=== PATIENT | male | born 1980 | race Caucasian/White ===

== ENCOUNTER 2019-05-16 00:21 | Emergency (ER) | payer OTHER ==
[~2019-05-16] VITALS: Ht 182.9 cm; Wt 147.4 kg
[~2019-05-16 00:21] MED LIST: FLUOXETINE HCL20 MG PO; ISENTRESS400 MG PO; TRUVADA 200 MG1 EACH PO; XANAX0.25 MG PO
--- OUTSIDE RECORDS SUMMARY | 2019-05-16 00:24 | XMS ---
PreManage Notification: FARHAN LONGO Security Plugger Events No recent Security Events currently on file [facility] There are no care providers on record at this time. Aicha has no Care Guidelines for this patient. Kailee VISIT COUNT (12 MO.) 1 ANUJ Diaz TOTAL 1 NOTE: Visits indicate total known visits. ED/UCC VISIT TRACKING (12 MO.) 05/16/2019 00:23 ANUJ Chowdary [place] TYPE: Emergency COMPLAINT: - RT THUMB PAIN INPATIENT VISIT TRACKING (12 MO.) No inpatient visits to display in this time frame [id number]
[2019-05-16] MEDS ORDERED: BACTRIM DS TAB1 EACH PO (00:56)
== END 2019-05-16 01:05 | disposition home or self-care (01) ==
LOC: ED 00:21
DX: L03.011 Cellulitis of right finger (principal); L98.9 Disorder of the skin and subcutaneous tissue, unspecified; I10 Essential (primary) hypertension; F41.9 Anxiety disorder, unspecified; F17.200 Nicotine dependence, unspecified, uncomplicated; Z79.899 Other long term (current) drug therapy
CPT/HCPCS: 99283

== ENCOUNTER 2019-08-01 13:38 | Emergency (ER) | payer OTHER ==
[~2019-08-01] VITALS: Ht 182.9 cm; Wt 147.4 kg
[~2019-08-01 13:38] MED LIST changes: +BACTRIM DS TAB1 EACH PO
--- OUTSIDE RECORDS SUMMARY | 2019-08-01 13:42 | XMS ---
PreManage Notification: FARHAN LONGO Security Personal Care Assistant Events No recent Security Events currently on file CRITERIA MET - [employer] CARE PROVIDERS [facility] 05/16/2019-Current PHONE: [phone] Aicha has no Care Guidelines for this patient. EMike VISIT COUNT (12 MO.) 2 ANUJ Diaz TOTAL 2 NOTE: Visits indicate total known visits. ED/UCC VISIT TRACKING (12 MO.) 08/01/2019 13:39 ANUJ Chowdary [place] TYPE: Emergency COMPLAINT: - SKIN PROBLEM 05/16/2019 00:23 ANUJ Chowdary [place] TYPE: Emergency COMPLAINT: - RT THUMB PAIN DIAGNOSES: - Disorder of the skin and subcutaneous tissue, unspecified - Cellulitis of right finger - Pain in right finger(s) - Other fdc (current) drug therapy - Anxiety disorder, unspecified - Essential (primary) hypertension - Nicotine dependence, unspecified, uncomplicated INPATIENT VISIT TRACKING (12 MO.) No inpatient visits to display in this time frame [id number]
== END 2019-08-01 14:05 | disposition home or self-care (01) ==
LOC: ED 13:38
DX: L08.9 Local infection of the skin and subcutaneous tissue, unspecified (principal)

== ENCOUNTER 2020-03-11 01:09 | Emergency (ER) | payer OTHER ==
[~2020-03-11] VITALS: Ht 182.9 cm; Wt 158.8 kg
[2020-03-11] MEDS ORDERED: DOXYCYCLINE HY100 MG PO (02:26)
[2020-03-11] MEDS ORDERED: NORCO 5-325 TA1 EACH PO (02:26)
--- OUTSIDE RECORDS SUMMARY | 2020-03-11 03:02 | XMS ---
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 If Mental Health services are needed please contact: Harris [phone] Safia/ Bob Phylicia [phone] Crisis Line [phone] E.Cory VISIT COUNT (12 MO.) 3 ANUJ MilburnHarris Moran TOTAL 3 NOTE: Visits indicate total known visits. ED/UCC VISIT TRACKING (12 MO.) 03/11/2020 01:10 ANUJ Chowdary OR TYPE: Emergency COMPLAINT: - TESTICULAR PAIN 08/01/2019 13:39 ANUJ Chowdary OR TYPE: Emergency COMPLAINT: - SKIN PROBLEM, MSE TO CLINIC DIAGNOSES: - Local infection of the skin and subcutaneous tissue, unspecif 05/16/2019 00:23 ANUJ Chowdary OR TYPE: Emergency COMPLAINT: - RT THUMB PAIN DIAGNOSES: - Disorder of the skin and subcutaneous tissue, unspecified - Cellulitis of right finger - Pain in right finger(s) - Other intermodal customer service (current) drug therapy - Anxiety disorder, unspecified - Essential (primary) hypertension - Nicotine dependence, unspecified, uncomplicated INPATIENT VISIT TRACKING (12 MO.) No inpatient visits to display in this time frame [id number]
== END 2020-03-11 02:36 | disposition home or self-care (01) ==
LOC: ED 01:09
DX: N45.1 Epididymitis (principal); I10 Essential (primary) hypertension; F17.200 Nicotine dependence, unspecified, uncomplicated
CPT/HCPCS: 81001; 87088; 87147; 99284

== ENCOUNTER 2021-01-03 18:21 | Emergency (ER) | payer OTHER ==
[~2021-01-03] VITALS: Ht 182.9 cm; Wt 158.8 kg
[~2021-01-03 18:21] MED LIST changes: +DOXYCYCLINE HY100 MG PO; +NORCO 5-325 TA1 EACH PO
--- OUTSIDE RECORDS SUMMARY | 2021-01-03 18:22 | XMS ---
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 If Mental Health services are needed please contact: Harris [phone] Safia/ Bob Phylicia [phone] Crisis Line [phone] E.Cory VISIT COUNT (12 MO.) 2 ANUJ GoteboHarris Moran TOTAL 2 NOTE: Visits indicate total known visits. ED/UCC VISIT TRACKING (12 MO.) 01/03/2021 18:21 ANUJ Chowdary OR TYPE: Emergency COMPLAINT: - URINE PROBLEM 03/11/2020 01:10 ANUJ Chowdary OR TYPE: Emergency COMPLAINT: - TESTICULAR PAIN DIAGNOSES: - Right testicular pain - Essential (primary) hypertension - Nicotine dependence, unspecified, uncomplicated - Epididymitis INPATIENT VISIT TRACKING (12 MO.) No inpatient visits to display in this time frame [id number]
[2021-01-03] MEDS ORDERED: DOXYCYCLINE HY100 MG PO ×2 (19:26→19:28)
== END 2021-01-03 19:40 | disposition home or self-care (01) ==
LOC: ED 18:21
DX: N34.2 Other urethritis (principal); I10 Essential (primary) hypertension; F17.200 Nicotine dependence, unspecified, uncomplicated
CPT/HCPCS: 81001; 87491; 87591; 99283